=== PATIENT | male | born 1945 | race Caucasian/White ===

== ENCOUNTER 2017-09-22 19:27 | Inpatient (IN) | payer MEDICARE, OTHER ==
[2017-09-22] MEDS ORDERED: NITROGLYCERIN OINT 1 INCH/GM PACKET TOPICAL STA (19:38)
[2017-09-22] MEDS ORDERED: ASPIRIN 81 MG PO STA (19:38)
--- NOTE | 2017-09-22 19:42 | ED ---
General Adult HPI - General Chief complaint: Chest Pain Stated complaint: Chest Pain Time Seen by Provider: 09/22/17 19:32 Source: patient, EMS, RN notes reviewed Mode of arrival: EMS Limitations: no limitations - History of Present Illness Initial comments: Patient is a pleasant 71-year-old male presenting to the emergency Department with complaints of chest discomfort. Symptoms have been somewhat present for the past week, but worse today. Patient has indigestion in his chest. Patient does have some associated shortness of breath. Patient was with his son today who is in the medical field and checked his pulse. Heart rate was at 32. Patient states he normally does have a low heart rate. EMS provided her a nitroglycerin with resolution of symptoms. No history of similar symptoms previously. - Related Data Home Medications Medication Instructions Recorded Confirmed Pepcid Complete 2 tab PO ONCE PRN 09/22/17 09/22/17 Allergies Allergy/AdvReac Type Severity Reaction Status Date / Time No Known Allergies Allergy Verified 09/22/17 19:55 Review of Systems ROS Statement: Those systems with pertinent positive or pertinent negative responses have been documented in the HPI. ROS Other: All systems not noted in ROS Statement are negative. Constitutional: Denies: fever Eyes: Denies: eye pain ENT: Denies: ear pain Respiratory: Reports: dyspnea. Denies: cough Cardiovascular: Reports: chest pain Endocrine: Denies: fatigue Gastrointestinal: Denies: abdominal pain Genitourinary: Denies: dysuria Musculoskeletal: Denies: back pain Skin: Denies: rash Neurological: Denies: weakness Past Medical History Additional Past Medical History / Comment(s): Prostate CA History of Any Multi-Drug Resistant Organisms: None Reported Past Surgical History: Appendectomy, Hernia Repair, Prostate Surgery Past Psychological History: No Psychological Hx Reported Smoking Status: Never smoker Past Alcohol Use History: None Reported Past Drug Use History: None Reported General Exam Limitations: no limitations General appearance: alert, in no apparent distress Head exam: Present: atraumatic, normocephalic Eye exam: Present: normal appearance, PERRL ENT exam: Present: normal oropharynx Neck exam: Present: normal inspection Respiratory exam: Present: normal lung sounds bilaterally. Absent: chest wall tenderness Cardiovascular Exam: Present: bradycardia Expanded Peripheral pulses: 2+: Radial (R), Radial (L), Dorsalis Pedis (R), Dorsalis Pedis (L) GI/Abdominal exam: Present: soft. Absent: tenderness Extremities exam: Present: normal inspection. Absent: pedal edema, calf tenderness Neurological exam: Present: alert Psychiatric exam: Present: normal affect, normal mood Skin exam: Present: normal color Course Vital Signs 09/22/17 09/22/17 19:31 20:23 Temperature 98.2 F Pulse Rate 40 L 40 L Respiratory 18 18 Rate Blood Pressure 129/75 111/70 O2 Sat by Pulse 98 100 Oximetry EKG Findings - EKG Comments: EKG Findings:: Sinus bradycardia 44. First-degree AV block with a IN of 248. QRS 118. QT 446. QTc 381. Left axis. Right bundle branch block. Inferior Q waves. No acute ST change. Medical Decision Making - Medical Decision Making Patient reevaluated and resting comfortably in bed. Patient remained symptom- free. Patient and family are updated on results and plan. Case was discussed in detail with Dr. Morris, who will admit for hospital call. Cardiology will be consult. - Lab Data Result diagrams: 09/22/17 19:34 09/22/17 19:34 Lab Results 09/22/17 09/22/17 09/22/17 Range/Units 19:34 19:34 19:34 WBC 7.0 (3.8-10.6) k/uL RBC 4.81 (4.30-5.90) m/uL Hgb 15.0 (13.0-17.5) gm/dL Hct 43.3 (39.0-53.0) % MCV 90.1 (80.0-100.0) fL MCH 31.1 (25.0-35.0) pg MCHC 34.5 (31.0-37.0) g/dL RDW 12.4 (11.5-15.5) % Plt Count 188 (150-450) k/uL Neutrophils % 48 % Lymphocytes % 38 % Monocytes % 7 % Eosinophils % 3 % Basophils % 1 % Neutrophils # 3.4 (1.3-7.7) k/uL Lymphocytes # 2.7 (1.0-4.8) k/uL Monocytes # 0.5 (0-1.0) k/uL Eosinophils # 0.2 (0-0.7) k/uL Basophils # 0.1 (0-0.2) k/uL PT (9.0-12.0) sec INR (<1.2) APTT (22.0-30.0) sec D-Dimer (<0.60) mg/L FEU Sodium 142 (137-145) mmol/L Potassium 4.3 (3.5-5.1) mmol/L Chloride 107 (98-107) mmol/L Carbon Dioxide 26 (22-30) mmol/L Anion Gap 9 mmol/L BUN 22 H (9-20) mg/dL Creatinine 1.00 (0.66-1.25) mg/dL Est GFR (CKD-EPI)AfAm 87 (>60 ml/min/1.73 sqM) Est GFR (CKD-EPI)NonAf 75 (>60 ml/min/1.73 sqM) Glucose 79 (74-99) mg/dL Calcium 9.2 (8.4-10.2) mg/dL Magnesium 2.1 (1.6-2.3) mg/dL Total Bilirubin 0.5 (0.2-1.3) mg/dL AST 19 (17-59) U/L ALT 22 (21-72) U/L Alkaline Phosphatase 38 (38-126) U/L Total Creatine Kinase 88 (55-170) U/L CK-MB (CK-2) 1.4 (0.0-2.4) ng/mL CK-MB (CK-2) Rel Index 1.6 Troponin I <0.012 (0.000-0.034) ng/mL Total Protein 6.3 (6.3-8.2) g/dL Albumin 3.9 (3.5-5.0) g/dL 09/22/17 Range/Units 19:34 WBC (3.8-10.6) k/uL RBC (4.30-5.90) m/uL Hgb (13.0-17.5) gm/dL Hct (39.0-53.0) % MCV (80.0-100.0) fL MCH (25.0-35.0) pg MCHC (31.0-37.0) g/dL RDW (11.5-15.5) % Plt Count (150-450) k/uL Neutrophils % % Lymphocytes % % Monocytes % % Eosinophils % % Basophils % % Neutrophils # (1.3-7.7) k/uL Lymphocytes # (1.0-4.8) k/uL Monocytes # (0-1.0) k/uL Eosinophils # (0-0.7) k/uL Basophils # (0-0.2) k/uL PT 10.2 (9.0-12.0) sec INR 1.0 (<1.2) APTT 23.3 (22.0-30.0) sec D-Dimer 0.37 (<0.60) mg/L FEU Sodium (137-145) mmol/L Potassium (3.5-5.1) mmol/L Chloride (98-107) mmol/L Carbon Dioxide (22-30) mmol/L Anion Gap mmol/L BUN (9-20) mg/dL Creatinine (0.66-1.25) mg/dL Est GFR (CKD-EPI)AfAm (>60 ml/min/1.73 sqM) Est GFR (CKD-EPI)NonAf (>60 ml/min/1.73 sqM) Glucose (74-99) mg/dL Calcium (8.4-10.2) mg/dL Magnesium (1.6-2.3) mg/dL Total Bilirubin (0.2-1.3) mg/dL AST (17-59) U/L ALT (21-72) U/L Alkaline Phosphatase (38-126) U/L Total Creatine Kinase (55-170) U/L CK-MB (CK-2) (0.0-2.4) ng/mL CK-MB (CK-2) Rel Index Troponin I (0.000-0.034) ng/mL Total Protein (6.3-8.2) g/dL Albumin (3.5-5.0) g/dL - Radiology Data Radiology results: image reviewed (Chest x-ray shows chronic changes without acute process.) Disposition Clinical Impression: Bradycardia, Unstable angina pectoris Disposition: ADMITTED IP TO THIS [facility] Referrals: Nonstaff,Physician [Primary Care Provider] - 1-2 days Decision Time: 21:19
[2017-09-22 20:01] LABS: Basophils # (A) 0.1 k/uL (0-0.2); Basophils % (A) 1 %; Eosinophils # (A) 0.2 k/uL (0-0.7); Eosinophils % (A) 3 %; HCT 43.3 % (39.0-53.0); Lymphocytes # (A) 2.7 k/uL (1.0-4.8); Lymphocytes % (A) 38 %; MCH 31.1 pg (25.0-35.0); MCHC 34.5 g/dL (31.0-37.0); MCV 90.1 fL (80.0-100.0); Mean Platelet Volume 6.7; Monocytes # (A) 0.5 k/uL (0-1.0); Monocytes % (A) 7 %; Neutrophils # (A) 3.4 k/uL (1.3-7.7); Neutrophils % (A) 48 %; Platelet Count 188 k/uL (150-450); RBC 4.81 m/uL (4.30-5.90); RDW 12.4 % (11.5-15.5)
--- NOTE | 2017-09-22 20:13 | XR ---
EXAMINATION TYPE: XR chest 2V DATE OF EXAM: 09/22/2017 COMPARISON: NONE HISTORY: Chest pain. TECHNIQUE: Frontal and lateral views of the chest are obtained. FINDINGS: There is chronic emphysematous change without suspicious focal air space opacity, pleural effusion, or pneumothorax seen. The cardiac silhouette size is upper limits of normal. The osseous structures are intact. IMPRESSION: Chronic emphysematous change without acute pulmonary process.
[2017-09-22 20:16] LABS: D-Dimer 0.37 mg/L FEU (<0.60); Partial Thromboplastin Time 23.3 sec (22.0-30.0); Prothrombin Time 10.2 sec (9.0-12.0)
[2017-09-22 20:21] LABS: Albumin 3.9 g/dL (3.5-5.0); Calcium 9.2 mg/dL (8.4-10.2); Magnesium 2.1 mg/dL (1.6-2.3); Potassium 4.3 mmol/L (3.5-5.1); Total Bilirubin 0.5 mg/dL (0.2-1.3); Total Protein 6.3 g/dL (6.3-8.2)
[2017-09-22 20:54] LABS: Creatine Kinase 88 U/L (55-170)
[2017-09-22 21:07] LABS: Creatine Kinase MB 1.4 ng/mL (0.0-2.4); Troponin I <0.012 ng/mL (0.000-0.034)
[2017-09-22] MEDS ORDERED: HEPARIN SODIUM,PORCINE 5,000 UNIT/ML 1 ML VIAL IV ONE (21:19)
[2017-09-22] MEDS ORDERED: HEPARIN SODIUM,PORCINE 5,000 UNIT/ML 1 ML VIAL IV PRN (21:19)
[2017-09-22] MEDS ORDERED: NITROGLYCERIN SL TABS 0.4 MG TAB SUBLINGUAL PRN (21:19)
[2017-09-22] MEDS ORDERED: HEPARIN SOD,PORK IN 0.45% NACL 25,000 UNIT in 0.45% NACL 1 500ML.BAG IV SCH (21:30)
[2017-09-23 04:09] LABS: Creatine Kinase 77 U/L (55-170)
[2017-09-23 04:24] LABS: Creatine Kinase MB 1.2 ng/mL (0.0-2.4); Troponin I <0.012 ng/mL (0.000-0.034)
[2017-09-23] MEDS: NITROGLYCERIN OINT 1 INCH/GM PACKET TOPICAL SCH ×4 (04:29→18:00)
[2017-09-23 08:05] LABS: Mean Platelet Volume 6.8; Platelet Count 167 k/uL (150-450)
[2017-09-23 08:31] LABS: Creatine Kinase 71 U/L (55-170)
[2017-09-23 08:44] LABS: Creatine Kinase MB 1.2 ng/mL (0.0-2.4); Troponin I <0.012 ng/mL (0.000-0.034)
[2017-09-23 08:49] LABS: Cholesterol 158 mg/dL (<200); HDL Cholesterol 26 mg/dL (40-60); LDL Cholesterol,Calculated 121 mg/dL (0-99); Triglycerides 57 mg/dL (<150)
[2017-09-23] MEDS ORDERED: ASPIRIN 325 MG TAB PO SCH (09:00)
[2017-09-23] MEDS ORDERED: SODIUM CHLORIDE 0.9% 1,000 ML in EMPTY BAG 1 BAG IV ONE (12:10)
[2017-09-23] MEDS ORDERED: ALPRAZolam 0.25 MG TAB PO PRN (12:10)
[2017-09-23] MEDS ORDERED: ALPRAZolam 0.5 MG TAB PO PRN (12:10)
--- NOTE | 2017-09-23 12:13 | P.CRDCN ---
History of Present Illness History of present illness: Impression Chest discomfort consistent with angina, relieved with nitroglycerin, no evidence for acute bradycardia and injury ECG did not show any definite ST segment abnormalities This was severe pain and at that time his heart rate was in the 30s Sinus bradycardia in the 40s first-degree AV block Sustained ventricular tachycardia on telemetry asymptomatic 10 year cardiovascular risk about 16% Many years back he had a cardiac CT which showed nonobstructive CAD Patient is not on a statin Suggest Atorvastatin 40 mg by mouth daily, baby aspirin, hold off on beta blockers him a proceed with coronary angiography tomorrow morning He will follow-up with me as an outpatient Hold off on any decision regarding permanent pacing. Past Medical History Additional Past Medical History / Comment(s): Prostate CA History of Any Multi-Drug Resistant Organisms: None Reported Past Surgical History: Appendectomy, Hernia Repair, Orthopedic Surgery, Prostate Surgery Additional Past Surgical History / Comment(s): right rotator cuff repair Past Anesthesia/Blood Transfusion Reactions: No Reported Reaction Past Psychological History: No Psychological Hx Reported Smoking Status: Former smoker Past Alcohol Use History: None Reported Past Drug Use History: None Reported - Past Family History Mother Family Medical History: Coronary Artery Disease (CAD) Father Additional Family Medical History / Comment(s): alcoholic Brother(s) Family Medical History: No Reported History Sister(s) Family Medical History: No Reported History Son(s) Additional Family Medical History / Comment(s): congenital hip issue, left pallet Medications and Allergies Allergies Allergy/AdvReac Type Severity Reaction Status Date / Time No Known Allergies Allergy Verified 09/22/17 22:18 Physical Exam Vitals: Vital Signs Temp Pulse Pulse Resp BP BP Pulse Ox 09/23/17 08:00 97.9 F 56 L 14 104/61 97 09/23/17 04:00 97.4 F L 42 L 16 98/55 98 09/22/17 23:21 97.6 F 49 L 16 99/61 93 L 09/22/17 22:57 16 09/22/17 22:10 97.6 F 44 L 16 118/73 99 09/22/17 21:43 97.4 F L 09/22/17 21:41 42 L 18 121/74 99 09/22/17 20:23 40 L 18 111/70 100 09/22/17 19:31 98.2 F 40 L 18 129/75 98 Intake and Output 09/22/17 09/23/17 09/23/17 21:59 06:59 14:59 Intake Total Balance Intake: IV 0.9@20 Heparin Sod,Pork in 0.45% NaCl 25,000 unit In 0.45 % NaCl 1 500ml.bag @ 12 UNITS/KG/HR 20.13 mls/hr IV .Q24H [facility] Rx#: [id number] Intake, IV Titration Amount Heparin Sod,Pork in 0.45% NaCl 25,000 unit In 0.45 % NaCl 1 500ml.bag @ 12 UNITS/KG/HR 20.13 mls/hr IV .Q24H [facility] Rx#: [id number] Other: Voiding Method Toilet # Voids Weight Results 09/23/17 07:07 09/22/17 19:34 Cardiac Enzymes 09/22/17 09/22/17 09/23/17 Range/Units 19:34 19:34 01:59 AST 19 (17-59) U/L CK-MB (CK-2) 1.4 1.2 (0.0-2.4) ng/mL Troponin I <0.012 <0.012 (0.000-0.034) ng/mL 09/23/17 Range/Units 07:07 AST (17-59) U/L CK-MB (CK-2) 1.2 (0.0-2.4) ng/mL Troponin I <0.012 (0.000-0.034) ng/mL Coagulation 09/22/17 09/23/17 Range/Units 19:34 01:59 PT 10.2 (9.0-12.0) sec APTT 23.3 42.2 H (22.0-30.0) sec Lipids 09/23/17 Range/Units 07:07 Triglycerides 57 (<150) mg/dL Cholesterol 158 (<200) mg/dL HDL Cholesterol 26 L (40-60) mg/dL CBC 09/22/17 09/23/17 Range/Units 19:34 07:07 WBC 7.0 (3.8-10.6) k/uL RBC 4.81 (4.30-5.90) m/uL Hgb 15.0 (13.0-17.5) gm/dL Hct 43.3 (39.0-53.0) % Plt Count 188 167 (150-450) k/uL Comprehensive Metabolic Panel 09/22/17 Range/Units 19:34 Sodium 142 (137-145) mmol/L Potassium 4.3 (3.5-5.1) mmol/L Chloride 107 (98-107) mmol/L Carbon Dioxide 26 (22-30) mmol/L BUN 22 H (9-20) mg/dL Creatinine 1.00 (0.66-1.25) mg/dL Glucose 79 (74-99) mg/dL Calcium 9.2 (8.4-10.2) mg/dL AST 19 (17-59) U/L ALT 22 (21-72) U/L Alkaline Phosphatase 38 (38-126) U/L Total Protein 6.3 (6.3-8.2) g/dL Albumin 3.9 (3.5-5.0) g/dL Current Medications Generic Name Dose Route Start Last Admin Trade Name Freq PRN Reason Stop Dose Admin Alprazolam 0.25 mg 09/23/17 12:10 Xanax PO Q6HR PRN Mild Anxiety Alprazolam 0.5 mg 09/23/17 12:10 Xanax PO Q6HR PRN Moderate Anxiety Aspirin 81 mg 09/24/17 09:00 Aspirin PO DAILY REPLACED BY [facility] Atorvastatin Calcium 40 mg 09/23/17 12:15 Lipitor PO DAILY REPLACED BY [facility] Heparin Sodium (Porcine) 0 unit 09/22/17 21:19 09/23/17 04:11 Heparin IV 2,200 unit Q6HR PRN Administration Low PTT Protocol Heparin Sodium/Sodium Chloride 500 mls @ 20.13 mls/hr 09/22/17 21:30 04:10 25,000 unit/ Sodium Chloride IV 13.91 units/kg/hr .Q24H [facility] 23.34 mls/hr Protocol Titration 12 UNITS/KG/HR Sodium Chloride 1,000 ml/ IV 1,000 mls @ 88.3 mls/hr 09/23/17 12:10 Solution IV 09/23/17 12:11 .[id number] ONE 1 ML/KG/HR Nitroglycerin 1 inch 09/23/17 00:00 09/23/17 05:29 Nitro-Bid Oint TOPICAL Not Given Q6HR REPLACED BY [facility] Nitroglycerin 0.4 mg 09/22/17 21:19 Nitrostat SUBLINGUAL Q5M PRN Chest Pain Intake and Output 09/22/17 09/23/17 09/23/17 21:59 06:59 14:59 Intake Total Balance Intake: IV 0.9@20 Heparin Sod,Pork in 0.45% NaCl 25,000 unit In 0.45 % NaCl 1 500ml.bag @ 12 UNITS/KG/HR 20.13 mls/hr IV .Q24H [facility] Rx#: [id number] Intake, IV Titration Amount Heparin Sod,Pork in 0.45% NaCl 25,000 unit In 0.45 % NaCl 1 500ml.bag @ 12 UNITS/KG/HR 20.13 mls/hr IV .Q24H [facility] Rx#: [id number] Other: Voiding Method Toilet # Voids Weight 09/23/17 07:07 09/22/17 19:34
--- NOTE | 2017-09-23 12:14 | P.CRDCN ---
History of Present Illness Consult date: 09/23/17 Consult reason: chest pain History of present illness: Mr. Velasco is a pleasant 71-year-old male past medical history significant for prostate cancer. He denies history of coronary artery disease and is never seen a crossing guard for any reason. He is a former smoker however he quit over 40 years ago. We have been asked to see him in consultation for complaints of chest pain and bradycardia. He states intermittently over the past week he has experienced symptoms of extreme burning sensation in the midsternal region associated with shortness of breath and difficulty in taking a deep breath. He denies palpitations, dizziness, nausea, vomiting or diaphoresis. The pain remains localized to the midsternal region with no radiation to the neck back or arm or jaw. There are no specific aggravating or alleviating factors. He states that he is very active physically and exercises daily. He has also had symptoms of GERD in the past and he states this is very different feeling. He is not associated with oral intake at all. He was at his son's house yesterday who is a nurse practitioner and he had one of these episodes. At that time his son took his pulse and he noted to be 30. He insisted he called ambulance for further evaluation. He had no further episodes since presentation to the hospital. He has wearing a nitroglycerin patch. EKG on arrival reveals sinus bradycardia heart rate in the 40s with first- degree AV block and right bundle branch block. Non-specific T-wave abnormalities inferiorly. No old EKG for comparison. Chest xray is negative for an acute cardiopulmonary process. Laboratory data reviewed, hemoglobin 15.0, platelets 167, d-dimer 0.37, potassium 4.3, magnesium 2.1, creatinine 1.0, cardiac enzymes negative 3, LDL 121, HDL 26. He takes no daily medications. At the time of my exam: CONSTITUTIONAL: Denies fever. Denies chills. EYES: Denies blurred vision. Denies vision changes. Denies eye pain. EARS, NOSE, MOUTH & THROAT: Denies headache. Denies sore throat. Denies ear pain. CARDIOVASCULAR: Denies chest pain. Denies shortness of breath. Denies orthopnea. Denies PND. Denies palpitations. RESPIRATORY: Denies cough. GASTROINTESTINAL: Denies abdominal pain. Denies diarrhea. Denies constipation. Denies nausea. Denies vomiting. MUSCULOSKELETAL: Denies myalgias. INTEGUMENTARY: Denies pruitis. Denies rash. NEUROLOGIC: Denies numbness. Denies tingling. Denies weakness. PSYCHIATRIC: Denies anxiety. Denies depression. ENDOCRINE: Denies fatigue. Denies weight change. Denies polydipsia. Denies polyurina. GENITOURINARY: Denies burning, hematuria or urgency with micturation. HEMATOLOGIC: Denies history of anemia. Denies bleeding. Blood pressure 98/55 heart rate 42 afebrile maintaining oxygen saturation on room air GENERAL: This is a 71-year-old male in no apparent distress at the time of my examination. HEENT: Head is atraumatic, normocephalic. Pupils are equal, round. Sclerae anicteric. Conjunctivae are clear. Mucous membranes of the mouth are moist. Neck is supple. There is no jugular venous distention. No carotid bruit is heard. LUNGS: Clear to auscultation no wheezes, rales or rhonchi. No chest wall tenderness is noted on palpation or with deep breathing. HEART: Regular rate and rhythm without murmurs, rubs or gallops. S1 and S2 heard. ABDOMEN: Soft, nontender. Bowel sounds are heard. No organomegaly noted. EXTREMITIES: No evidence of peripheral edema and no calf tenderness noted. VASCULAR: Radial and dorsalis pedis pulses palpated, no evidence of clubbing. NEUROLOGIC: Patient is awake, alert and oriented x3. ASSESSMENT 1. Chest pain, atypical. Cardiac enzymes negative 3 no EKG evidence of an acute ischemic attack. An acute coronary event has been ruled out. 2. Right bundle branch block with 1st degree AV block 3. Dyslipidemia 4. Non-sustained VT, 4 beats. Asymptomatic PLAN Obtain 2D echocardiogram and doppler study to assess cardiac structure and function. Add aspirin 81 mg daily and atorvastatin 40 mg daily. Recommend cardiac catheterization tomorrow with Dr. Souza to evaluate for coronary artery disease. Further recommendations to follows. Nurse Practitioner note has been reviewed, I agree with a documented findings and plan of care. Patient was seen and examined. Past Medical History Additional Past Medical History / Comment(s): Prostate CA History of Any Multi-Drug Resistant Organisms: None Reported Past Surgical History: Appendectomy, Hernia Repair, Orthopedic Surgery, Prostate Surgery Additional Past Surgical History / Comment(s): right rotator cuff repair Past Anesthesia/Blood Transfusion Reactions: No Reported Reaction Past Psychological History: No Psychological Hx Reported Smoking Status: Former smoker Past Alcohol Use History: None Reported Past Drug Use History: None Reported - Past Family History Mother Family Medical History: Coronary Artery Disease (CAD) Father Additional Family Medical History / Comment(s): alcoholic Brother(s) Family Medical History: No Reported History Sister(s) Family Medical History: No Reported History Son(s) Additional Family Medical History / Comment(s): congenital hip issue, left pallet Medications and Allergies Allergies Allergy/AdvReac Type Severity Reaction Status Date / Time No Known Allergies Allergy Verified 09/22/17 22:18 Physical Exam Vitals: Vital Signs Temp Pulse Pulse Resp BP BP Pulse Ox 09/23/17 04:00 97.4 F L 42 L 16 98/55 98 09/22/17 23:21 97.6 F 49 L 16 99/61 93 L 09/22/17 22:57 16 09/22/17 22:10 97.6 F 44 L 16 118/73 99 09/22/17 21:43 97.4 F L 09/22/17 21:41 42 L 18 121/74 99 09/22/17 20:23 40 L 18 111/70 100 09/22/17 19:31 98.2 F 40 L 18 129/75 98 Intake and Output 09/22/17 09/23/17 09/23/17 21:59 06:59 14:59 Intake Total Balance Intake: IV 0.9@20 Heparin Sod,Pork in 0.45% NaCl 25,000 unit In 0.45 % NaCl 1 500ml.bag @ 12 UNITS/KG/HR 20.13 mls/hr IV .Q24H [facility] Rx#: [id number] Intake, IV Titration Amount Heparin Sod,Pork in 0.45% NaCl 25,000 unit In 0.45 % NaCl 1 500ml.bag @ 12 UNITS/KG/HR 20.13 mls/hr IV .Q24H [facility] Rx#: [id number] Other: Voiding Method # Voids Weight Results 09/23/17 07:07 09/22/17 19:34 Cardiac Enzymes 09/22/17 09/22/17 09/23/17 Range/Units 19:34 19:34 01:59 AST 19 (17-59) U/L CK-MB (CK-2) 1.4 1.2 (0.0-2.4) ng/mL Troponin I <0.012 <0.012 (0.000-0.034) ng/mL Coagulation 09/22/17 09/23/17 Range/Units 19:34 01:59 PT 10.2 (9.0-12.0) sec APTT 23.3 42.2 H (22.0-30.0) sec CBC 09/22/17 09/23/17 Range/Units 19:34 07:07 WBC 7.0 (3.8-10.6) k/uL RBC 4.81 (4.30-5.90) m/uL Hgb 15.0 (13.0-17.5) gm/dL Hct 43.3 (39.0-53.0) % Plt Count 188 167 (150-450) k/uL Comprehensive Metabolic Panel 09/22/17 Range/Units 19:34 Sodium 142 (137-145) mmol/L Potassium 4.3 (3.5-5.1) mmol/L Chloride 107 (98-107) mmol/L Carbon Dioxide 26 (22-30) mmol/L BUN 22 H (9-20) mg/dL Creatinine 1.00 (0.66-1.25) mg/dL Glucose 79 (74-99) mg/dL Calcium 9.2 (8.4-10.2) mg/dL AST 19 (17-59) U/L ALT 22 (21-72) U/L Alkaline Phosphatase 38 (38-126) U/L Total Protein 6.3 (6.3-8.2) g/dL Albumin 3.9 (3.5-5.0) g/dL Current Medications Generic Name Dose Route Start Last Admin Trade Name Freq PRN Reason Stop Dose Admin Aspirin 325 mg 09/23/17 09:00 Aspirin PO DAILY [facility] Heparin Sodium (Porcine) 0 unit 09/22/17 21:19 09/23/17 04:11 Heparin IV 2,200 unit Q6HR PRN Administration Low PTT Protocol Heparin Sodium/Sodium Chloride 500 mls @ 20.13 mls/hr 09/22/17 21:30 04:10 25,000 unit/ Sodium Chloride IV 13.91 units/kg/hr .Q24H [facility] 23.34 mls/hr Protocol Titration 12 UNITS/KG/HR Nitroglycerin 1 inch 09/23/17 00:00 09/23/17 05:29 Nitro-Bid Oint TOPICAL Not Given Q6HR [facility] Nitroglycerin 0.4 mg 09/22/17 21:19 Nitrostat SUBLINGUAL Q5M PRN Chest Pain Intake and Output 09/22/17 09/23/17 09/23/17 21:59 06:59 14:59 Intake Total Balance Intake: IV 0.9@20 Heparin Sod,Pork in 0.45% NaCl 25,000 unit In 0.45 % NaCl 1 500ml.bag @ 12 UNITS/KG/HR 20.13 mls/hr IV .Q24H [facility] Rx#: [id number] Intake, IV Titration Amount Heparin Sod,Pork in 0.45% NaCl 25,000 unit In 0.45 % NaCl 1 500ml.bag @ 12 UNITS/KG/HR 20.13 mls/hr IV .Q24H [facility] Rx#: [id number] Other: Voiding Method # Voids Weight 09/23/17 07:07 09/22/17 19:34
[2017-09-23] MEDS: ATORVASTATIN 40 MG TAB PO SCH (14:20)
--- NOTE | 2017-09-23 16:41 | HP ---
HISTORY AND PHYSICAL DATE OF SERVICE: 09/23/2017. CHIEF COMPLAINT: Chest pain. BRIEF HISTORY: This patient is 71-year-old male patient with a past medical history of prostatic cancer, hyperlipidemia presented to the ED with a complaint of chest discomfort, which is intermittent and has been happening for the past week, feels like extreme burning sensation in the midsternal area. It is associated with shortness of breath and difficulty in taking a deep breath. He has no palpitations. No nausea, vomiting or diaphoresis. Pain is localized more to this midsternal region without any radiation to neck, back, arm or jaw. There are no specific aggravating factors. The patient's EKG showed a sinus bradycardia, first-degree AV block. PAST MEDICAL HISTORY: Significant for history of prostatic cancer. PAST SURGICAL HISTORY: Significant for appendectomy, hernia repair, prostate cancer, right rotator cuff repair. SOCIAL HISTORY: Patient is a former smoker. No history of IV drug abuse or alcoholism. FAMILY HISTORY: Significant for coronary artery disease in mother, history of alcohol abuse in father and some congenital hip issues in son with cleft palate. ALLERGIES: He has no known drug allergies. MEDICATIONS: Patient is patient is not taking any medications on regular basis. REVIEW OF SYSTEM: CONSTITUTION: No fever or chills. HEENT: No vision or speech difficulty. LUNGS: No shortness of breath as described above. CHEST: Pain as per HPI. GI/ABDOMEN: No nausea, vomiting or diarrhea. GENITOURINARY: No hematuria. No dysuria. EXTREMITIES/MUSCULOSKELETAL: No muscle or joint deformities. NEUROLOGICAL: No dizziness or lightheadedness. No focal neurological deficit. SKIN: No rashes or pigmentation. ENDOCRINE: No polyuria, polydipsia. HEMATOLOGICAL: No bleeding or coagulation abnormalities. Rest of 14-point review of system is unremarkable. PHYSICAL EXAMINATION: The patient is awake, alert and oriented. He is in no acute distress. VITAL SIGNS: Temperature 97.4, pulse 42, respirations 16, blood pressure 92/55, O2 saturation 98%. HEENT: Atraumatic, normocephalic. Pupils equal and reactive to light. Extraocular movements intact. Buccal mucosa is fair. NECK: Supple. No goiter, lymphadenopathy. JVD is negative. No carotid bruit heard. Lungs are clear to auscultate. No rales, rhonchi, or wheezes. Heart is bradycardic. Regular rhythm. ABDOMEN: Soft, nontender, nondistended. Bowel sounds positive. EXTREMITIES: No edema, clubbing or cyanosis. NEUROLOGICAL EXAMINATION: Cranial nerves 2-12 grossly intact. No gross motor or sensory deficit. Skin is warm, dry and intact. LAB: CBC: White blood count of 7, hemoglobin 15, hematocrit 43.3, and platelet count of 188. Chemical profile: Sodium 142, potassium 4.3, chloride 107, bicarb 26, BUN 22, creatinine 1.0. EKG shows a sinus bradycardia, first-degree AV block and right bundle branch block. ASSESSMENT: 1. Chest pain, unstable angina, rule out acute coronary syndrome. 2. Right bundle branch block with first-degree AV block. 3. Dyslipidemia. 4. Nonsustained ventricular tachycardia for asymptomatic 4 beats. PLAN: Admit the patient to telemetry. Monitor cardiac enzymes and EKG. Order 2D echocardiogram. Patient is started on aspirin and Lipitor per Cardiology recommendations and the plan is to admit the patient for cardiac catheterization for further treatment and evaluation. MMODL / IJN: [id number] /
[2017-09-24] MEDS: NITROGLYCERIN OINT 1 INCH/GM PACKET TOPICAL SCH ×3 (00:57→20:31)
[2017-09-24] MEDS: ASPIRIN 81 MG PO SCH (05:15)
[2017-09-24] MEDS: ATORVASTATIN 40 MG TAB PO SCH (05:15)
[2017-09-24] MEDS ORDERED: IV FLUID CONTINUATION 1,000 ML IV ONE (09:06)
[2017-09-24] MEDS ORDERED: fentaNYL (PF) 50 MCG/ML 2 ML AMP IV ONE (09:41)
[2017-09-24] MEDS ORDERED: MIDAZOLAM 2 MG/2 ML VIAL IV ONE (09:41)
[2017-09-24] MEDS ORDERED: LIDOCAINE 2% INJ 20 MG/ML SQ ONE (09:43)
[2017-09-24] MEDS ORDERED: IOHEXOL 350 MG/ML 125ML BOTTLE INJ ONE (10:11)
[2017-09-24] MEDS ORDERED: HYDROcodone/APAP 5-325MG 1 EACH TAB PO PRN (10:17)
[2017-09-24] MEDS ORDERED: RX INFO: IV CONTRAST WAS GIVEN 1 EACH MISC MISCELLANE PRN (10:17)
--- NOTE | 2017-09-24 10:24 | P.PCN ---
Date of Procedure: 09/24/17 Preoperative Diagnosis: Chest Pain, bradycardia and nonsustained V. tach Postoperative Diagnosis: Diffuse coronary artery disease, noncritical. Procedure(s) Performed: Left heart catheterization with the left ventriculography Description of Procedure: HISTORY: This is a 71-year-old gentleman with history of previous smoking who is brought in for evaluation of recurrent burning chest pain. Patient is also found to be bradycardic and having frequent PVCs and nonsustained V. tach. Patient was evaluated by my partner and advised him to have cardiac catheterization. CONSENT:I have discussed the risks, benefits and alternative therapies for the above-mentioned procedure and for both sedation/analgesia as well as necessary blood product administration, if indicated, as they pertain to this patient. The patient has indicated understanding and acceptance of the risks and procedures discussed. PROCEDURE: Patient was brought to the lab in a fasting state. Patient was given some IV sedation. The right groin is infiltrated with lidocaine and right femoral artery was entered using Seldinger technique. A 6-Malawian catheter was left in place and selective coronary arteriography and left ventriculography was performed. Patient tolerated the procedure well. Femoral angiogram was performed and Angio-Seal was applied for hemostasis. No immediate complications were noted and patient was transferred to [facility] in a stable condition Conscious Sedation: Versed 2 mg Fentanyl 50 g Duration 29minutes HEMODYNAMICS: The aortic pressure is 130/70. Left ventricular end-diastolic pressure is 8-12. There was no gradient across the aortic valve SELECTIVE CORONARY ARTERIOGRAPHY: LEFT MAIN: Long and free of any significant occlusive disease. However is calcified THE LEFT ANTERIOR DESCENDING CORONARY ARTERY: The proximal and mid LAD is heavily calcified. There is diffuse plaque in the proximal and mid portions with an area of about 40% stenosis. The distal LAD is free of any occlusive disease THE LEFT CIRCUMFLEX AND IS CORONARY ARTERY:. Good caliber vessel giving rise to small OM branch. The circumflex and its branches are free of any significant occlusive disease THE RIGHT CORONARY ARTERY:. This is a dominant vessel giving rise to PDA and PLV. The distal vessel is so mild diffuse plaque. There is about 50% stenosis of the ostium of the right ventricular branch LEFT VENTRICULOGRAPHY:. This revealed normal-sized cardiac silhouette with good systolic function. No mitral regurgitation FINAL IMPRESSION: Diffuse mild coronary artery disease involving the proximal and mid LAD and also distal RCA. The canal system is calcified, especially the left main and LAD PLAN: Maximum medical therapy and this factor modification. Further management of the arrhythmias as for Dr. Hurt PROGNOSIS: Fair
[2017-09-24] MEDS: SODIUM CHLORIDE 0.9% 1,000 ML IV SCH (20:30)
--- NOTE | 2017-09-24 21:18 | PN ---
PROGRESS NOTE DATE OF SERVICE: 09/24/2017. INTERVAL HISTORY: This 71-year-old gentleman who was admitted with chest pain had cardiac cath today which showed diffuse mild coronary artery disease involving the proximal and mid LAD and distal RCA. Coronary system was calcified, medical treatment was advised. There is no history of chest pain. No history of palpitations. LDL was 121. Troponins are negative. EXAM: Alert and oriented times two. Pulse is 43, blood pressure 130/77, respiration 18, temperature 97.4, pulse ox 97% on room air. HEENT: Conjunctivae normal. Neck: No jugular venous distention. Cardiovascular: S1, S2 muffled. Respirations: Breath sounds diminished in the bases. No rhonchi and no crackles. Abdomen is soft, nontender. Legs are no edema, no swelling. Central nervous system: No focal deficits. LAB STUDIES: LDL 121. Otherwise, CBC BMP noted. ASSESSMENT: 1. Chest pain possible unstable angina, status post cardiac catheterization showing mild diffuse coronary artery disease involving the proximal and mid LAD and distal RCA. 2. Hyperlipidemia. 3. Bradycardia. 4. History of prostate cancer. 5. History of appendectomy. 6. History of degenerative joint disease. 7. Remote history of nicotine dependence. RECOMMENDATIONS AND DISCUSSION: This 71-year-old gentleman who presented with multiple medical issues, at this time, we will continue the current medications, symptomatic treatment, antiplatelet agents and continue with Lipitor. Avoid beta blockers. Otherwise continue to monitor. Closely follow with Cardiology. Further recommendations to follow. 2D echo has been planned tomorrow. MMAJAY / MADISONN: [id number] /
[2017-09-25] MEDS: SODIUM CHLORIDE 0.9% 1,000 ML IV SCH ×2 (02:10→11:10)
[2017-09-25 06:56] LABS: Mean Platelet Volume 7.3; Platelet Count 168 k/uL (150-450)
[2017-09-25] MEDS: ASPIRIN 81 MG PO SCH (08:24)
[2017-09-25] MEDS: ATORVASTATIN 40 MG TAB PO SCH (08:24)
[2017-09-25] MEDS ORDERED: ceFAZolin 1,000 MG in DEXTROSE/WATER 1 50ML.BAG IVPB STA (08:34)
[2017-09-25] MEDS ORDERED: SODIUM CHLORIDE 0.9% 250 ML IV ONE (08:53)
[2017-09-25] MEDS ORDERED: MIDAZOLAM 2 MG/2 ML VIAL ONE (09:17)
[2017-09-25] MEDS ORDERED: MIDAZOLAM 2 MG/2 ML VIAL IVP ONE (09:18)
[2017-09-25] MEDS ORDERED: LIDOCAINE 2% INJ 20 MG/ML SQ ONE (09:19)
--- NOTE | 2017-09-25 09:37 | P.PCN ---
Preoperative Diagnosis: Loop monitor implant Primary physicians: [facility] Director: Dr. Sears Indication: Recurrent dizzy spells and episode of presyncope while sitting frequent PVCs nonsustained atrial tachycardia nonobstructive CAD normal LV function mild prolonged AZ interval mild sinus bradycardia Patient was brought to the EP lab in a fasting state. Written informed consent was obtained prior to the procedure. The left pectoral area was prepped and draped per protocol. Intravenous antibiotic was administered preoperatively. A subcutaneous Loop monitor was implanted successfully and the wound was closed per protocol. The device was programmed to detect significant latisha- arrhythmic and tachy-arrhythmic events, per protocol. Device and programming details: Programming to detect bradycardia and nonsustained ventricular tachycardia possible causes of recurrent dizzy spells Patient underwent EP procedure under conscious sedation/moderate sedation, monitoring of the level of consciousness and physiologic parameters including but not limited to vital signs and oxygenation. Patient tolerated the procedure well without any acute complications. Start time: 0918 Stop time: 9:30
[2017-09-25 10:00] VITALS: RESP 18
[2017-09-25 12:48] VITALS: BP 98/68; PULSE 60; TEMP 97.3
--- NOTE | 2017-09-25 18:36 | ECHOF ---
Referral Reason:cad MEASUREMENTS -------- HEIGHT: 182.9 cm WEIGHT: 83.5 kg BP: 138/56 RVIDd: 3.8 cm (< 3.3) IVSd: 1.1 cm (0.6 - 1.1) LVIDd: 4.3 cm (3.9 - 5.3) LVPWd: 0.9 cm (0.6 - 1.1) IVSs: 1.9 cm LVIDs: 1.6 cm LVPWs: 1.9 cm LAESV Index (A-L): 17.77 ml/m Ao Diam: 3.6 cm (2.0 - 3.7) AV Cusp: 2.3 cm (1.5 - 2.6) LA Diam: 3.3 cm (2.7 - 3.8) MV EXCURSION: 19.783 mm (> 18.000) MV EF SLOPE: 138 mm/s (70 - 150) EPSS: 1.2 cm MV E Kristopher: 0.78 m/s MV DecT: 207 ms MV A Kristopher: 0.73 m/s MV E/A Ratio: 1.06 RAP: 5.00 mmHg RVSP: 10.49 mmHg FINDINGS -------- Sinus rhythm with extra systolic beats. This was a technically good study. The left ventricular size is normal. Left ventricular wall thickness is normal. Overall left vent ricular systolic function is normal with, an EF between 55 - 60 %. The right ventricle is mild to moderately enlarged. The left atrium is normal in size. The right atrium is normal in size. Aortic valve is trileaflet and is mildly thickened. The mitral valve leaflets are mildly thickened. Mild mitral annular calcification present. There is trace mitral regurgitation. Trace tricuspid regurgitation present. The right ventricular systolic pressure, as measured by Dopp ler, is 10.49mmHg. Pulmonic valve appears structurally normal. The aortic root size is normal. Normal inferior vena cava with normal inspiratory collapse consistent with estimated right atrial pre ssure of 5 mmHg. The pericardium is normal. CONCLUSIONS -------- 1. Sinus rhythm with extra systolic beats. 2. This was a technically good study. 3. The left ventricular size is normal. 4. Left ventricular wall thickness is normal. 5. Overall left ventricular systolic function is normal with, an EF between 55 - 60 %. 6. The right ventricle is mild to moderately enlarged. 7. The left atrium is normal in size. 8. The right atrium is normal in size. 9. Aortic valve is trileaflet and is mildly thickened. 10. The mitral valve leaflets are mildly thickened. 11. Mild mitral annular calcification present. 12. There is trace mitral regurgitation. 13. Trace tricuspid regurgitation present. 14. The right ventricular systolic pressure, as measured by Doppler, is 10.49mmHg. 15. Pulmonic valve appears structurally normal. 16. The aortic root size is normal. 17. Normal inferior vena cava with normal inspiratory collapse consistent with estimated right atrial pressure of 5 mmHg. 18. The pericardium is normal. TRAVELING PHLEBOTOMIST: Sophia Rinaldi RDCS
== END 2017-09-25 16:15 | disposition home or self-care (01) | DRG 261 ==
LOC: EC 19:27 → 3OBS 21:19 → OBSVTOIN 09-23 19:44 → 6SEL 09-24 08:57
PROVIDERS: ADMIT Internal Medicine; ATTEND Internal Medicine
PROC: 4A023N7 Measurement of Cardiac Sampling and Pressure, Left Heart, Percutaneous Approach (ICD-10-PCS; 2017-09-24)
PROC: B2111ZZ Fluoroscopy of Multiple Coronary Arteries using Low Osmolar Contrast (ICD-10-PCS; 2017-09-24)
PROC: B2151ZZ Fluoroscopy of Left Heart using Low Osmolar Contrast (ICD-10-PCS; 2017-09-24)
PROC: 0JH632Z Insertion of Monitoring Device into Chest Subcutaneous Tissue and Fascia, Percutaneous Approach (ICD-10-PCS; principal; 2017-09-25 09:30)
DX: I25.110 Atherosclerotic heart disease of native coronary artery with unstable angina pectoris (principal); I47.2 Ventricular tachycardia; R00.1 Bradycardia, unspecified; I45.10 Unspecified right bundle-branch block; I47.1 Supraventricular tachycardia; I44.0 Atrioventricular block, first degree; K21.9 Gastro-esophageal reflux disease without esophagitis; E78.5 Hyperlipidemia, unspecified; M19.91 Primary osteoarthritis, unspecified site; Z87.891 Personal history of nicotine dependence; Z90.49 Acquired absence of other specified parts of digestive tract; Z85.46 Personal history of malignant neoplasm of prostate; Z82.49 Family history of ischemic heart disease and other diseases of the circulatory system
CPT/HCPCS: 33282; 36415; 71046; 80053; 80061; 82550; 82553; 83735; 84484; 85025; 85049; 85379; 85610; 85730; 93005; 93306; 93458; 96374; 99285

== ENCOUNTER → 2023-05-28 | Outpatient (CLI) | payer MEDICARE, OTHER ==
[2023-05-28 10:27] LABS: African American GFR (CKD) >90 (>60 ml/min/1.73 sqM); Blood Urea Nitrogen 20 mg/dL (9-20); Non-African American GFR(CKD) 79 (>60 ml/min/1.73 sqM)
--- NOTE | 2023-05-28 12:51 | CT ---
EXAMINATION TYPE: CT abdomen pelvis w con DATE OF EXAM: 05/28/2023 COMPARISON: None HISTORY: elevated PSA CT DLP: 796.4 mGycm Automated exposure control for dose reduction was used. CONTRAST: CT scan of the abdomen pelvis is performed with IV Contrast, patient injected with 100 mL of Isovue 3 00. FINDINGS- LUNG BASES- bibasilar atelectasis. Faint coronary artery and aortic valve calcifications. Heart uppe r limits of normal. LIVER/GB- cholelithiasis. No CT evidence of cholecystitis. Liver homogeneous. PANCREAS- No gross abnormality is seen. SPLEEN- No gross abnormality is seen. ADRENALS- there is a 2.5 cm right adrenal mass measuring of -6 Hounsfield units compatible with steven gn adrenal adenoma. KIDNEYS/BLADDER-no hydronephrosis. Small parapelvic renal cysts. Hypodensities are too small to felipe cterize but statistically most likely related to simple cyst. Low BOWEL- no evidence of obstruction. Correlate for constipation. Mild changes of diverticulosis. Moder ate hydronephrosis. LYMPH NODES- No greater than 1cm abdominal or pelvic lymph nodes are appreciated. Shotty subcentimet er lymph nodes are seen in the groin bilaterally. OSSEOUS STRUCTURES- multilevel hypertrophic degenerative changes. Bilateral SI joint arthropathy. Bi lateral hip arthropathy. There is a 8 mm sclerotic lesion involving the posterior right acetabulum is small characterize. Faint sclerosis involving the left femoral neck. Additional punctate areas of sc lerosis are nonspecific. Severe degenerative disc genic disease with discogenic marrow changes at L4-5. 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 Prostate is not seen with certainty correlate for previous surg paulo. IMPRESSION- 1. No evidence of pathologic adenopathy. 2. Multiple areas of sclerosis involving the osseous structures to small to characterize recommend iwona ne scan. 3. Cholelithiasis.
--- NOTE | 2023-05-29 10:08 | NM ---
EXAMINATION TYPE: NM bone scan whole body DATE OF EXAM: 05/29/2023 COMPARISON: NONE CLINICAL INDICATION: Male, 77 years old with history of R97.20 elevated PSA; Delayed whole-body scanning was performed following the injection of 23.2 mCi Tc 99m MDP. Images acq uired 4 hours post injection. FINDINGS: There is degenerative uptake about the shoulders, sternoclavicular joints, lower lumbar spine and jessenia ateral knees. No intense uptake is seen to suggest metastatic disease. IMPRESSION: Degenerative uptake as noted.
== END | disposition home or self-care (01) ==
LOC: RADNMMAIN 09:31
PROVIDERS: ATTEND Pediatrics
DX: K80.20 Calculus of gallbladder without cholecystitis without obstruction (principal); M89.8X9 Other specified disorders of bone, unspecified site; R97.20 Elevated prostate specific antigen [PSA]
CPT/HCPCS: 82565; 84520; 74177; 36415; Q9967; 78306

== ENCOUNTER → 2023-08-09 | Outpatient (CLI) | payer MEDICARE, OTHER ==
--- NOTE | 2023-08-09 16:28 | PE ---
EXAMINATION TYPE: PET CT fusion skull to thigh DATE OF EXAM: 08/09/2023 CLINICAL INDICATION:Male, 77 years old with history of C61 Prostate CA; TECHNIQUE: Following the intravenous administration of 6.59 mCi of Ga-68 Illuccix (PSMA), whole bod y images are performed from the skull base to the midthigh. Images are reviewed on the computer in t he coronal, axial, and sagittal planes. Reconstructed rotating images are created on independent wor kstation and reviewed on the computer. A non-contrast CT is performed in conjunction with the PET s can. CT DLP: 651 mGycm, Automated exposure control for dose reduction was used. COMPARISON: CT 05/28/2023, nuclear medicine bone scan 05/28/2023, PET/CT None, FINDINGS: Mediastinal SUV mean is 1.3. Hepatic parenchyma SUV mean is 7.1. SKULL BASE AND NECK: No suspicious radiotracer activity. CHEST, MEDIASTINUM, AND HILAR REGION: No suspicious radiotracer activity. ABDOMEN AND PELVIS: Abnormal radiotracer seen within pelvic lymph nodes the right pelvic sidewall lymph node measuring 11 mm short axis and an additional lymph node in the left external iliac chain measuring 5 mm. MUSCULOSKELETAL STRUCTURES: No suspicious radiotracer activity. OTHER CT: Bilateral aphakia. Atherosclerosis of the arterial vasculature. Degeneration changes of the shoulder. Coronary artery calcifications. Cholelithiasis. Right adrenal lipid rich adenoma. Jessica me sentery. The prostate gland appears surgically absent. IMPRESSION: Abnormal radiotracer activity, and there is a right pelvic sidewall and left external iliac lymph nod e which is radiotracer activity compatible with metastatic prostate adenocarcinoma.
== END | disposition home or self-care (01) ==
LOC: RADPETMAIN 14:35
PROVIDERS: ATTEND Radiology Radiation Oncology
DX: C61 Malignant neoplasm of prostate (principal)
CPT/HCPCS: 78815; A9596